=== PATIENT | female | born 1970 | race Caucasian/White ===

== ENCOUNTER 2021-08-09 07:06 | Day surgery (SDC) | payer OTHER, BC ==
[~2021-08-09 07:06] MED LIST: Lactated Ringers 1,000 ML IV SCH
[2021-08-09] MEDS ORDERED: Naloxone 0.4 MG/ML SDV IVPUSH PRN (07:47)
[2021-08-09] MEDS ORDERED: Ondansetron 4 MG/2 ML SDV IVPUSH PRN (07:47)
[2021-08-09] MEDS ORDERED: HYDROmorphone 1 MG/ML Syringe IVPUSH PRN (07:47)
[2021-08-09] MEDS ORDERED: Metoclopramide 10 MG/2 ML SDV IVPUSH PRN (07:47)
[2021-08-09] MEDS ORDERED: fentaNYL 100 MCG/2 ML SDV IVPUSH PRN (07:47)
[2021-08-09] MEDS ORDERED: Albuterol 0.083% 2.5 MG/3 ML Neb Soln NEB PRN (07:47)
[2021-08-09] MEDS ORDERED: ceFAZolin 2 GM in Premix Bag 1 BAG IV SCH (08:00)
[2021-08-09] MEDS ORDERED: fentaNYL 250 MCG/5 ML SDV ONE (08:48)
[2021-08-09] MEDS ORDERED: Propofol 200 MG/20 ML SDV ONE (08:48)
[2021-08-09] MEDS ORDERED: ceFAZolin 1 GM Vial ONE (09:16)
[2021-08-09] MEDS ORDERED: Bupivacaine 0.25%/EPINEPHrine 1:200,000 10 ML SDV ONE (09:33)
[2021-08-09] MEDS ORDERED: fentaNYL 100 MCG/2 ML SDV ONE (09:35)
== END 2021-08-09 12:00 | disposition home or self-care (01) ==
LOC: MW.SDS 07:06
PROVIDERS: ATTEND Orthopaedic Surgery
DX: S83.281A Other tear of lateral meniscus, current injury, right knee, initial encounter (principal); M22.2X1 Patellofemoral disorders, right knee; I10 Essential (primary) hypertension; G47.30 Sleep apnea, unspecified; E66.9 Obesity, unspecified; Z68.41 Body mass index [BMI] 40.0-44.9, adult; Z87.891 Personal history of nicotine dependence; Z79.899 Other long term (current) drug therapy; X58.XXXA Exposure to other specified factors, initial encounter
CPT/HCPCS: 29881; 81025; J0131; J0690; J1170; J2704; J3010; J3490; J7120

== ENCOUNTER 2022-04-05 06:48 | Day surgery (SDC) | payer OTHER ==
[2022-04-03 10:39] LABS: CARBON DIOXIDE,CO2 30.4 mmol/L (21.0-32.0); POTASSIUM,K 3.9 mmol/L (3.5-5.1)
[~2022-04-05 06:48] MED LIST changes: -Lactated Ringers 1,000 ML IV SCH; +Sodium Chloride 0.9% 10 ML Syringe FLUSH PRN; +Sodium Chloride 0.9% 2.5 ML Syringe FLUSH PRN; +Sodium Chloride 0.9% 20 ML SDV IV PRN; +cefOXitin 2 GM in Premix Bag 1 BAG IV ONE
[2022-04-05] MEDS ORDERED: Scopolamine 1.5 MG Transdermal Patch ONE (07:13)
[2022-04-05] MEDS: Lactated Ringers 1,000 ML IV SCH ×2 (07:44→12:05)
[2022-04-05] MEDS ORDERED: Dexamethasone 4 MG/ML 5 ML MDV ONE (07:53)
[2022-04-05] MEDS ORDERED: Ketorolac 30 MG/ML SDV ONE (07:53)
[2022-04-05] MEDS ORDERED: Lidocaine 2% 5 ML SDV ONE (07:53)
[2022-04-05] MEDS ORDERED: Ondansetron 4 MG/2 ML SDV ONE (07:53)
[2022-04-05] MEDS ORDERED: Sugammadex Sodium 200 MG/2 ML VIAL ONE (07:53)
[2022-04-05] MEDS ORDERED: Rocuronium Bromide 50 MG/5 ML Syringe ONE (07:53)
[2022-04-05] MEDS ORDERED: fentaNYL 100 MCG/2 ML SDV ONE (07:54)
[2022-04-05] MEDS ORDERED: Propofol 200 MG/20 ML SDV ONE ×3 (07:54→09:24)
[2022-04-05] MEDS ORDERED: fentaNYL 50 MCG/ML SDV IVPUSH PRN (07:56)
[2022-04-05] MEDS ORDERED: Ondansetron 4 MG/2 ML SDV IVPUSH PRN ×2 (07:56→09:49)
[2022-04-05] MEDS ORDERED: Metoclopramide 10 MG/2 ML SDV IVPUSH PRN (07:56)
[2022-04-05] MEDS ORDERED: Albuterol 0.083% 2.5 MG/3 ML Neb Soln NEB PRN (07:56)
[2022-04-05] MEDS ORDERED: Naloxone 0.4 MG/ML SDV IVPUSH PRN (07:56)
[2022-04-05] MEDS ORDERED: Morphine 2 MG/ML SYRINGE IVPUSH PRN (07:56)
[2022-04-05] MEDS ORDERED: Levofloxacin/Dextrose 5%-Water 150 ML IV ONE (08:05)
[2022-04-05] MEDS ORDERED: ceFAZolin 1 GM Vial ONE (08:26)
[2022-04-05] MEDS ORDERED: Fluorescein 5 ML Vial ONE (09:15)
[2022-04-05] MEDS ORDERED: Scopolamine 1.5 MG Transdermal Patch TOP ONE (09:41)
[2022-04-05] MEDS ORDERED: Acetaminophen/oxyCODONE 325-5 MG Tab PO PRN (09:49)
[2022-04-05] MEDS ORDERED: Ketorolac 30 MG/ML SDV IVPUSH ONE (09:49)
[2022-04-05] MEDS ORDERED: Promethazine 25 MG/ML SDV IM PRN (09:49)
[2022-04-05] MEDS: HYDROmorphone 1 MG/ML Syringe IVPUSH PRN ×2 (10:11→10:24)
[2022-04-05] MEDS: Morphine 4 MG/ML Syringe IVPUSH PRN ×2 (12:05→16:16)
[2022-04-05] MEDS ORDERED: Ketorolac 30 MG/ML SDV IVPUSH PRN (14:00)
[2022-04-05] MEDS: Acetaminophen/oxyCODONE 325-5 MG Tab PO PRN ×2 (14:09→19:54)
[2022-04-06] MEDS: Acetaminophen/oxyCODONE 325-5 MG Tab PO PRN ×3 (03:35→11:36)
[2022-04-06 06:53] LABS: CARBON DIOXIDE,CO2 25.7 mmol/L (21.0-32.0); POTASSIUM,K 3.9 mmol/L (3.5-5.1)
== END 2022-04-06 12:18 | disposition home or self-care (01) ==
LOC: MW.SDS 06:48 → MW.OB 11:37 → MW.SDS 04-06 12:18
PROVIDERS: ATTEND Obstetrics & Gynecology
DX: D25.9 Leiomyoma of uterus, unspecified (principal); N80.03 Adenomyosis of the uterus; E66.01 Morbid (severe) obesity due to excess calories; I10 Essential (primary) hypertension; E78.5 Hyperlipidemia, unspecified; R73.03 Prediabetes; F32.A Depression, unspecified; K21.9 Gastro-esophageal reflux disease without esophagitis; G47.30 Sleep apnea, unspecified; D64.9 Anemia, unspecified; Z79.899 Other long term (current) drug therapy; Z91.048 Other nonmedicinal substance allergy status; Z68.41 Body mass index [BMI] 40.0-44.9, adult; Z87.891 Personal history of nicotine dependence
CPT/HCPCS: 36415; 58291; 80048; 82947; 85025; 85027; 86850; 86900; 86901; A9270; J0690; J1100; J1170; J2270; J2704; J3010; J3490; J7030; J7120; 00944; J1885; J2405